=== PATIENT | female | born 1970 | race Caucasian/White ===

== ENCOUNTER 2019-03-19 18:03 | Emergency (ER) | payer OTHER ==
[~2019-03-19] VITALS: Ht 162.6 cm; Wt 71.7 kg
[2019-03-19 18:15] VITALS: BP 158/108
--- NOTE | 2019-03-19 18:30 | NUR ---
PT BIB SELF TO THE ED WITH THE CHIEF C/O CUT ON LEFT HAND DURING KITCHEN WORK. BLEEDING HAS STOPPED. +CMS. DENIES FEVER. STATES PAIN OF 7/10 AT THIS TIME. DENIES ANY OTHER PROBLEM NOW. MEDICAL HX: DENIES
--- NOTE | 2019-03-19 19:15 | NUR ---
RECEIVED REPORT FROM AM NURSE. PT LAYING IN BED, RR EVEN AND UNLABORED. PT WITH APPROX 1CM LACERATION IN WEBBING BETWEEN L 1ST AND 2ND FINGER, BLEEDING CONTROLLED. ALL NEEDS MET.
[2019-03-19] MEDS ORDERED: LIDOCAINE 2% 1000 MG/50 ML VIAL INJ ONE (20:30)
--- NOTE | 2019-03-19 21:05 | NUR ---
DR BLANCAS AT BEDSIDE FOR LAC REPAIR
[2019-03-19] MEDS ORDERED: BACITRACIN OINT 500 UNITS/GM PKT TP ONE (21:20)
[2019-03-19 21:33] VITALS: BP 157/101
== END 2019-03-19 21:33 | disposition home or self-care (01) ==
LOC: MED 18:03
DX: S61.412A Laceration without foreign body of left hand, initial encounter (principal); W45.8XXA Other foreign body or object entering through skin, initial encounter; Y93.89 Activity, other specified; Y92.89 Other specified places as the place of occurrence of the external cause; Y99.8 Other external cause status
CPT/HCPCS: 12001; 90471; 90715; 99283; J2001

== ENCOUNTER 2019-03-23 16:53 | Emergency (ER) | payer OTHER ==
[~2019-03-23] VITALS: Ht 162.6 cm; Wt 70.3 kg
[2019-03-23 17:16] VITALS: BP 162/97
--- NOTE | 2019-03-23 17:21 | NUR ---
PT EVALUATED IN TRIAGE BY PROVIDER
[2019-03-23 17:23] VITALS: BP 162/97
--- NOTE | 2019-03-23 17:24 | NUR ---
Patient discharged with v/s stable. Written and verbal after care instructions given and explained. Patient verbalized understanding. Ambulatory with steady gait. All questions addressed prior to discharge. Advised to follow up with PMD.
== END 2019-03-23 17:20 | disposition home or self-care (01) ==
LOC: MED 16:53
DX: S61.412D Laceration without foreign body of left hand, subsequent encounter (principal); X58.XXXD Exposure to other specified factors, subsequent encounter
CPT/HCPCS: 99281

== ENCOUNTER 2019-03-27 11:56 | Emergency (ER) | payer OTHER ==
[~2019-03-27] VITALS: Ht 165.1 cm; Wt 68.0 kg
[2019-03-27 12:10] VITALS: BP 124/87
--- NOTE | 2019-03-27 12:30 | NUR ---
SUTURE REMOVAL KIT PLACED AT BEDSIDE
--- NOTE | 2019-03-27 12:30 | NUR ---
Peter wall in [facility] - 03/27/19 at [email or web address] TAVARES AT BEDSIDE REMOVING SUTURES
--- NOTE | 2019-03-27 12:33 | NUR ---
PT RETURNING TO [facility] TO HAVE SUTURES REMOVED FROM L HAND BETWEEN 1ST AND 2ND DIGIT WEB. SUTURES ARE C/D/I, PT DENIES PAIN. RECEIVED TETANUS SHOT 03/19/19 BED IN LOW POSITION, SIDE RAIL UP.
--- NOTE | 2019-03-27 12:40 | NUR ---
DR TAVARES REMOVING SUTURES AT BEDSIDE
[2019-03-27 12:56] VITALS: BP 124/87
== END 2019-03-27 12:56 | disposition home or self-care (01) ==
LOC: MED 11:56
DX: S61.412D Laceration without foreign body of left hand, subsequent encounter (principal); Z48.02 Encounter for removal of sutures; X58.XXXD Exposure to other specified factors, subsequent encounter
CPT/HCPCS: 99281